=== PATIENT | male | born 1950 | race Caucasian/White ===

== ENCOUNTER 2024-08-27 14:48 | Outpatient (CLI) | payer MEDICARE, SELFPAY ==
--- NOTE | ~2024-08-27 | XR_ITS ---
AP view of the pelvis and AP and lateral views of the right hip Clinical history: Pain Findings: No acute fracture or dislocation is seen. Osseous alignment is anatomic. There is moderate right hip joint degenerative change. There is mild left hip joint degenerative change. 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 There is osteitis pubis. Soft tissues are u nremarkable. Impression: Degenerative changes, as above. Reviewed, dictated and finalized at location M. OPSYCHOLOGIST Impression: Degenerative changes, as above.
== END 2024-08-27 14:49 | disposition home or self-care (01) ==
PROVIDERS: PCP Family Medicine; Visit Provider Physician Assistant
DX: M25.551 Pain in right hip (principal)
CPT/HCPCS: 73502